=== PATIENT | female | born 1965 | race Caucasian/White ===

== ENCOUNTER → 2022-10-25 17:04 | Outpatient (BNVA) | payer MEDICAID, SELFPAY | PROVIDERS: Visit Provider Emergency Medicine | DX: M54.50 Low back pain, unspecified (principal); M25.552 Pain in left hip; G89.29 Other chronic pain | CPT/HCPCS: 72100; 73502 ==

== ENCOUNTER → 2022-11-22 14:27 | Outpatient (BNVA) | payer SELFPAY | PROVIDERS: Referring Provider Emergency Medicine; Visit Provider Student in an Organized Health Care Education/Training Program | DX: M16.12 Unilateral primary osteoarthritis, left hip (principal) | CPT/HCPCS: 73502 ==

== ENCOUNTER 2022-12-06 15:29 | Outpatient (CLI) | payer SELFPAY ==
--- NOTE | 2022-12-06 15:30 | CT_ITS ---
WS: [id number] CT LEFT HIP, [facility] PROT[facility]. HISTORY: Preop. Technique: All CT scans at [facility] use at least one of these dose optimization techniques: automated exposure control; mA and/or kV adjustment per patient size (includes targeted exams where dose is matched to clinical indication); or iterative reconstruction. DLP: 734.35 mGy.cm COMPARISON: LEFT hip radiograph 11/22/2022 Axial imaging through the pelvis including both hips. There is severe bilateral destruction of the hip joints. There is bone upon bone with extensive subch ondral cystic changes in the acetabulum and femoral heads. Sclerotic and cystic changes with loss of the normal contours. Increased soft tissue surrounding the femoral heads and distending the acetabulu m greatest on the LEFT. Normal SI joints. Bilateral knees: Negative. No destructive bone lesions. No significant joint space narrowing. CT/CT hip LT wo con* [id number] IMPRESSION: 1. Severe bilateral osteoarthritic changes at the hip joints, LEFT greater jacqueline n RIGHT. Extensive sclerotic and lytic disease involving the femoral heads and acetabulum with bony distortion. 2. Negative knees.
== END 2022-12-06 15:30 | disposition home or self-care (01) ==
LOC: RAD 15:29
PROVIDERS: PCP Student in an Organized Health Care Education/Training Program; Visit Provider Student in an Organized Health Care Education/Training Program
DX: G89.29 Other chronic pain (principal); M25.552 Pain in left hip; M17.0 Bilateral primary osteoarthritis of knee
CPT/HCPCS: 73700

== ENCOUNTER → 2022-12-12 11:01 | Outpatient (BNVA) | payer SELFPAY | PROVIDERS: PCP Student in an Organized Health Care Education/Training Program; Referring Provider Student in an Organized Health Care Education/Training Program; Visit Provider Clinical Nurse Specialist Adult Health | DX: Z01.818 Encounter for other preprocedural examination (principal); M16.12 Unilateral primary osteoarthritis, left hip | CPT/HCPCS: 80048; 85025 ==

== ENCOUNTER 2023-01-02 10:30 | Observation (INO) | payer SELFPAY ==
[2022-12-27 09:28] VITALS: BMI 21.1
--- NOTE | 2022-12-27 09:59 | ANES.PREANE2 ---
Pre-Anesthetic Assessment Height/Weight: Height 1.63 m Weight 55.792 kg Operation Date: 01/02/23 07:00 Proposed Procedures p Stew Robot Total Left Hip Arthroplasty:16222,M16.12(Left) - Frederic Momin DO Familial anesthetic complications: none Social No alcohol and No tobacco former smoker Exam alert, oriented x 3, clear to auscultation bilaterally and regular rate & rhythm Airway Mallampati: Class III Dentition: full Anesthetic Plan ASA status: 3 Anesthesia: Regional (specify below) Risk of > 500 ml blood loss (7ml/kg in children): Yes, adequate IV access and fluids planned Medications/Allergies Home Medications Medication Instructions Recorded Confirmed Last Taken Type ibuprofen 600 mg tablet 600 mg PO Q8H PRN pain #60 tabs 10/18/22 12/27/22 Unknown Rx Allergies Allergy/AdvReac Type Severity Reaction Status Date / Time No Known Allergies Allergy Verified 12/27/22 09:27 PFSH Anesthesia Medical History Chronic left hip pain Low back pain Surgical History No history of previous surgery Family History Denies family history of Clotting disorder Anesthesia complication Bleeding disorder Social History Smoking and tobacco status: former smoker Quit status (tobacco): has quit using tobacco Alcohol intake: never Data Anesthesia Cardiac Studies: No Data to Display
[2023-01-02] VITALS (17 sets, daily range): BP systolic 97–162; BP diastolic 62–97; PULSE 58–78; RESP 14–18; TEMP 36.1–36.7; O2SAT 95–100
[2023-01-02] MEDS: lactated ringers 500 ML IV (06:30)
[2023-01-02] MEDS: ketorolac 30 mg/mL INJ IVP (06:47)
--- NOTE | 2023-01-02 06:51 | PC.NURSE ---
Lactated ringers ran as bolus in less than 1 hour, okay per Dr Momin.
--- NOTE | 2023-01-02 06:52 | P.HP_ITS ---
Providers/Chief Complaint Admitting Physician: Frederic Momin DO/orthopedic surgery Primary Care Provider: Formerly Dr. Chairez however patient underwent preoperative clearing process by Cayetano Rausch Chief Complaint: M16.12 History of Present Illness Samantha Bender is a 57 year old female with severe left hip degenerative joint disease and AVN of femoral head. Patient at this point time is significantly sync-pc-xxhn arthritis patient is cleared the preoperative process. At this point time given the severity of her disease and pain she all questions have been answered. shared decision-making would like to proceed with a left total hip arthroplasty. She understands the risk benefits complication alternatives of surgery she is here today for left total hip arthroplasty. Review of Systems General: Reports: 10 or more systems reviewed and unremarkable except in HPI and below Medications/Allergies Home Medications Medication Instructions Recorded Confirmed Last Taken Type ibuprofen 600 mg tablet 600 mg PO Q8H PRN pain #60 tabs 10/18/22 01/02/23 01/01/23 Rx acetaminophen 650 mg 650 mg PO Q8H PRN Pain 01/02/23 01/02/23 12/31/22 History tablet,extended release Allergies Allergy/AdvReac Type Severity Reaction Status Date / Time No Known Allergies Allergy Verified 01/02/23 06:12 PFSH Acute PFSH: Medical History Chronic left hip pain Low back pain Surgical History No history of previous surgery Family History Denies family history of Clotting disorder Anesthesia complication Bleeding disorder Social History Smoking and tobacco status: former smoker Quit status (tobacco): has quit using tobacco Alcohol intake: never Vitals/I&O/Wt Last Vital Signs Temp 97.6 F 01/02/23 06:15 Pulse 78 01/02/23 06:15 Resp 18 01/02/23 06:15 BP 162/97 01/02/23 06:15 Pulse Ox 97 01/02/23 06:15 O2 Del Method Room Air 01/02/23 06:30 Physical Exam Narrative: Left hip examination ? She has significant groin pain tenderness to palpation that goes from anterior to posterior on range of motion.? She has severe pain with hip flexion and internal rotation with markedly decreased range of motion.? She has minimal lumbar tenderness to palpation and no SI joint tenderness to palpation.? Mild lateral trochanteric bursa tenderness to palpation, she is able to plantarflex and dorsiflex ankle.? Gross sensation intact light touch distally.? She is able to perform straight leg raise without pain or discomfort in the lumbar spine. Const: COMMON NORMALS: no acute distress, average body habitus and patient oriented x3 Resp: COMMON NORMALS: normal respiratory effort and No retractions Cardio: COMMON NORMALS: Peripheral pulses 2+ throughout A&P Assessment and plan (1) Arthritis of left hip: Plan Clear the preoperative process. At this point in time she is ready to proceed with a left total hip arthroplasty she has had a CT scan plan will be for a left total hip arthroplasty Stew robotic assisted. Preoperative plan reviewed. Patient understands the ins and outs of the procedure as well as the postoperative recovery process. She understands risk benefits complication alternatives of surgery and elects to proceed with surgical intervention all questions answered Attestations Medical Necessity Statement*: Postoperative care left total hip arthroplasty Coding Level of Care Code Acute Code for [facility] Fwd Diagnoses Arthritis of left hip M16.12 Time Spent (min) 20
[2023-01-02] MEDS: sodium chloride 0.9% 1,000 ML 30 ML IV (07:00)
[2023-01-02] MEDS: acetaminophen 1,000 MG/100 ML PIGGYBACK 400 MG IV ×3 (07:00→22:31)
[2023-01-02 07:11] LABS: Add Urine Microscopic? NO; Charge for UA Resulting for Rev
[2023-01-02 07:17] LABS: Bilirubin Urine Neg (Negative); Blood Urine Neg (Negative); Glucose Urine UA Norm (Normal); Ketones Urine Negative (Negative); Leukocyte Esterase Urine Negative (Negative); Nitrate Urine Negative (Negative); Protein Urine Neg (Negative); Urine Appearance Clear (CLEAR); Urine Color Yellow (Yellow); Urobilinogen Urine Norm (Negative); pH Urine 5 (5-7)
[2023-01-02] MEDS: ceFAZolin 2,000 MG in sodium chloride 0.9% (plus) 50 ML 100 MG IV ×3 (07:23→22:55)
[2023-01-02] MEDS: tranexamic acid 1,000 mg/10mL SDV 1000 MG IV (08:03)
[2023-01-02] MEDS: lidocaine-epi 2% 20 mL INJ INJECTION (08:32)
[2023-01-02] MEDS: vancomycin 1,000 MG SDV 1000 MG XX (08:32)
--- NOTE | 2023-01-02 08:48 | SUR.OPER ---
0865 Family was notified of surgery starting and status of patient.
--- NOTE | 2023-01-02 09:23 | P.ANESUD_ITS ---
Pre-Anesthetic Update Pre-Anesthetic Assessment: Date of Surgery/Procedure: 01/02/23 Preop Luz Elena gnosis: Left hip degenerative joint disease Proposed Procedure: Operation Date: 01/02/23 07:00 Proposed Procedures p Stew Robot Total Left Hip Arthroplasty:78704,M16.12(Left) - Frederic Momin, DO Any changes to Pre-Anesthetic Assessment?: No Last Intake: Intake Last Liquid Date 01/01/23 Last Liquid Time 21:00 Last Solid Date 01/01/23 Last Solid Time 20:00 Labs Last 48hrs: Urine 01/02/23 Range/Units 07:05 Urine Color Yellow (Yellow) Urine Appearance Clear (CLEAR) Urine pH 5 (5-7) Ur Specific Gravit y 1.030 (1.005-1.030) Urine Protein Neg (Negative) Urine Glucose (UA) Norm (Normal) Urine Ketones Negative (Negative) Urine Nitrate Negative (Negative) Urine Bilirubin Neg (Negative) Ur Leukocyte Rachele ase Negative (Negative) Blood Bank 01/02/23 06:30 Blood Type O Positive Rho(D) Type Positive Antibody Screen Negative Vitals: Temperature 97.6 F 01/02/23 06:15 Temperature Source Temporal Artery S can 01/02/23 06:15 Pulse Rate 78 01/02/23 06:15 Respiratory Rate 18 01/02/23 06:15 Blood Pressure 162/97 01/02/23 06:15 Blood Pressure Estela n 118 01/02/23 06:15 Pulse Oximetry 97 01/02/23 06:15 Oxygen Delivery Me thod Room Air 01/02/23 06:30 Exam: Pre-Anes Outpt Exam: alert, oriented x 3, clear to auscultation bilaterally and regular rate & rhythm Cardiac Studies: No Data to Display
--- NOTE | 2023-01-02 09:26 | SUR.OPER ---
Family Notified Of Patient's Status Via Phone.
--- NOTE | 2023-01-02 10:39 | XR_ITS ---
WS: [id number] XR hip LT 1V wo/w pel [id number] REASON FOR EXAM: LEFT TOTAL HIP ARTHROPLASTY, ARMANDO ROBOTIC ASSISTED FINDINGS: Total left hip arthroplasty. Components of the prosthesis are intact and in proper position and alignment. No bone abnormality. XR/XR hip LT 1V wo/w pel [id number] IMPRESSION: Total right hip arthroplasty without abnormality.
--- NOTE | 2023-01-02 10:57 | XR_ITS ---
WS: [id number] XR hip LT 2-3V wo/w pel* [id number] REASON FOR EXAM: post op EB left FINDINGS: Total left hip arthroplasty. The components of the prosthesis are intact and in proper position and alignment. No focal bone abnormality. XR/XR hip LT 2-3V wo/w pel* [id number] IMPRESSION: Total left hip arthroplasty without abnormality.
--- NOTE | 2023-01-02 10:59 | PM.OP2 ---
Brief Operative Note Date of procedure: 01/02/23 Pre-op diagnosis: Left hip degenerative joint disease AVN femoral head Post-op diagnosis: same Procedure Done: Left total hip arthroplasty?Stew robotic assisted (anterior approach) Surgeon: Frederic Momin Estimated blood loss (mL): 350 Complications: None Post-op Plan: Patient taken to PACU in stable condition recovering well. Patient will be admitted to the floor postoperatively. Internal medicine on board for medical management and assistance. Patient will receive appropriate discharge instructions pain medication DVT prophylaxis postoperatively. We will start DVT prophylaxis tomorrow with aspirin 325 twice daily. Will receive postoperative pain medication DVT prophylaxis TXA as well as pain control while on the floor. PT/OT. Anterior hip precautions. Weightbearing as tolerated to left lower extremity. Condition: stable Disposition: floor Coding Level of Care Code Acute Code for [facility]
--- NOTE | 2023-01-02 11:00 | PM.PACU ---
PACU note Narrative: Patient taken to PACU in stable condition recovering well. Dressings are clean dry and intact the left hip. Spinal anesthesia is wearing off she is able to wiggle her toes plantarflex and dorsiflex ankle patient's sensation is recovering unable to have full sensory examination secondary to spinal anesthesia. Distal pulses are palpable toes warm well perfused brisk capillary refill less than 2 seconds. Compartments soft and compressible. Exam: awake Disposition: admitted
--- NOTE | 2023-01-02 11:00 | PM.OP ---
Operative Report Date of procedure: January 02, 2023 Pre-op diagnosis: Preop Diagnosis Left hip degenerative joint disease Procedure: Postop diagnosis: Same Procedure done: Left total hip arthroplasty?Stew robotic assisted?anterior approach Implants: Deo Trident acetabular shell size 50 mm [place] acetabular screw 25 mm [place] acetabular screw 25 mm Accolade II 127 degree size 5? femur stem Trident 0 degree polyethylene 36 degree inner diameter 36 mm femoral head ceramic +2.5 mm Surgeon: Frederic Momin DO Anesthesia: Other (Spinal) Estimated blood loss: 350 mL IV fluids: 1100 mL Complications: None Findings: See operative report narrative Condition: stable Disposition: floor Brief History: Patient is a 57-year-old female presented to my outpatient office setting findings consistent with qyby-ng-tinq arthritis advanced degenerative joint disease of the left hip and findings consistent with AVN/flattening of the femoral head. Patient is in severe pain. We talked about treatment options as far as nonoperative and operative intervention.? At this point time patient is acca-xh-vkwa arthritis we did offer a corticosteroid injection at this point time given jilc-we-wzuq articulation pt would like to avoid placing a corticosteroid injection at this point time would like a permanent fix.? Patient has severely diminished range of motion and utilizing cane for walking. We talked about treatment options at this point time patient understands the risk benefits complication alternatives surgical nonsurgical treatment options.? Patient understands risk of surgery and agrees to proceed.? Patient is underwent a preoperative evaluation with our anesthesia department. Pt cleared for surical intervention. Pt understood and was agreeable to proceed with a left total hip arthroplasty consent was reviewed and signed with patient.?? All questions answered.? Patient will be admitted postoperatively. Procedure: Patient was seen evaluated in the preoperative holding area.? Consent was reviewed and signed with patient.? Correct operative extremity was then marked. ? All questions were answered at this time.? Once cleared by anesthesia used to brought back to the operative suite he then underwent anesthesia per the anesthesia department of a spinal anesthetic. The patient was administered tranexamic acid and preop antibiotics, and placed in the supine position. All bony prominences were properly padded, securely fixed to the table, and administered??anesthetic. The patient was subsequently transferred from the hospital bed to the [place] table. Bilateral lower extremities were placed in the traction boots. The pelvis was well approximated against the perineal post.? Final timeout performed.? Patient received appropriate preoperative antibiotics. Both hips were then prepped and draped in a normal orthopedic fashion.? Started with a small incision 2 fingerbreadths above the ASIS on the right iliac wing to place? pelvic arrays.? Small incision was made directly down to bone.? 3 pelvic pins were placed with excellent fixation.? The robotic array was secured to the nonoperative iliac wing using sterile technique. The extremity was then definitively draped in standard, sterile fashion.? The array was found to be visible by the robot. ?A standard? anterior supine approach was performed to the?operative hip joint. The skin was incised down to the tensor fascia erica muscle and fascia. Fascia was split longitudinally in line with its fibers. The tensor fascia erica muscle was retracted laterally. The appropriate retractors were placed superiorly. Lateral circumflex vessels were identified and appropriately ligated. The hip capsule was then identified.? Appropriate retractors were placed superiorly and inferiorly along the capsule directly onto bone.? That was split longitudinally up to the acetabular rim in line with the femoral neck. The femoral capsule was found to be significantly hypertrophic, thickened, and significantly fibrotic. The capsule was then elevated both superiorly and inferiorly down to the lesser trochanter as well as up towards the greater trochanter.? Tag stitches were applied with 0 Vicryl into the capsule.? Femoral check point was?then inserted and confirmed on the lateral trochanter proximal femur.? .? A distal marker?was placed into the distal femur for measurement of leg lengths.? Preoperative leg lengths were registered and confirmed at this point. Next the appropriate-sized neck cut was then performed after being measured with robotic assistance. Femoral head was removed atraumatically this was found to have significant degenerative changes and deformity with significant osteophyte formation.? Femoral head was found to be flattening with, eburnated bone, large CAM lesion and pronouced inferior medial osteophytes. Acetabulum was also inspected and was found to have peripheral osteophytes as well as no evidence of cartilage consistent with irrq-cj-dwju arthritis.? Appropriate retractors were then placed in the anterior and posterior wall.? The remaining labrum was then excised from the periphery of the acetabular rim. Pulvinar was excised.? At this point registration for the Stew was performed on the acetabular side and confirmed. Once confirmed, any osteophytes able to be were removed. We planned 40 degrees of lateral opening and 20 degrees of anteversion. At this point, we reamed and medialized to the inner wall of the acetabulum with a size?50?reamer for line to line fit.?The acetabulum was found to have good bleeding bone throughout.?? Reamer removed excellent bleeding bone circumferentially with sufficient anterior and posterior wall. ?The definitive acetabular cup 50 mm was inserted and impacted under?Stew guidance with the appropriate amount of anteversion and lateral opening. It was then secured with 2x 6.5 mm cancellous screws in appropriate safe zone position.? I subsquently drilled measured and place appropriate length acetabular screws which measured 25 mm and 25 mm.? These had excellent fixation final x-rays were taken of the acetabular work and showed a seated and well fixed acetabular cup with appropriate position acetabular screws.? ?Next a 36-mm X3 neutral liner was impacted into the?acetabular shell and secured. Hip was then irrigated with copious amounts of irrigation. At this point, the remaining femoral releases were then performed allowing the adequate mobilization of the?left?femur.? Traction was confirmed to being off to the left lower extremity and the femur was then externally rotated, extended, and adducted giving adequate exposure of the proximal femur in the surgical wound. Box cut was then used to enter the intramedullary canal of the?femur. Canal finder was placed down the canal of the?operative femur. Appropriate-sized broaches from a size 0 up to a size 5 were impacted down the operative femoral canal with the appropriate amount of anteversion.? A?+2.5 mm neck was found to be most appropriate for a soft tissue tensioning offset and the leg lengths that was confirmed with Stew as well as fluoroscopic imaging. ?Stability was then assessed and excellent stability with patient external rotation of greater than 90 degrees and traction with no evidence of hip instability.? Appropriate tension noted of the soft tissues. At this point, the hip was relocated.?Stew guidance was again used to confirm appropriate leg lengths. Operative hip was then re-dislocated using a bone hook. All trials were then removed from the?operative femur. Adequate exposure was then once again obtained. The trials were removed. The definitive Accolade II stem size 5 was impacted down the?femoral canal with the appropriate amount of anteversion. The appropriate sized head 36 mm ceramic +2.5 mm was impacted onto the trunnion, and the?operative?hip was then relocated with traction and internal rotation. Final measurements were obtained on Stew confirming leg lengths and offset.? Once again hip stability was assessed and found to have excellent stability and appropriate soft tissue tensioning.? Hip was irrigated with copious amounts of irrigation.? Vancomycin powder was placed within the wound bed for added infection prophylaxis.? The superior and inferior leaflets of the capsule were then closed with Ethibond suture.? Vicryl tag stitches were removed.? The superficial layer of the tensor fascia erica fascia was closed using 0 stratafix suture in a running fashion.? Subcutaneous tissues were closed with running 3-0 Stratafix, skin was closed with 4-0 monocryl.?Surgical Prineo glue and steri strips were?applied and covered with a optsite dressing to the operative side.?The incision on the non-operative side for the robotic array was irrigated and closed with layered fashion of 0 Vicryl, 2-0 Vicryl and running Monocryl suture and surgical glue and covered with silverlon. ?The patient was subsequently awoken per Anesthesia and transferred to PACU in satisfactory condition. ?Leg lengths and rotational profile were found to be appropriate. ? DISPOSITION: The patient will be admitted to the hospital for initiation of DVT prophylaxis, physical therapy, pain control. The patient is to weight bear as tolerated. Anterior hip precautions, postoperative antibiotics,?postoperative TXA and aspirin?for DVT prophylaxis.? Patient will receive appropriate discharge instructions as well as pain medication postoperatively and will follow up in my office in 2 weeks.? Patient with work with PT/OT.? Internal medicine will be consulted for medical management.
--- NOTE | 2023-01-02 11:42 | PM.CONSULT ---
Providers/Reason For Consult Consulting Physician/Specialty*: Postoperative management Reason for Consult*: Hospitalist postoperative managed Attending Physician: Frederic Momin DO History of Present Illness History of Present Illness Samantha Bender is a 57 year old female Status post left total hip arthroplasty, estimated blood loss 350 mL, hospital service requested to manage postop. Does not use oxygen, does not use any inhalers, she does not carry an official diagnosis of COPD. Postoperatively patient doing well pain well managed with current opioids Hemodynamically stable, family is at the bedside Afebrile Review of Systems Const: Denies: fever(s) Eyes: Denies: change in vision ENMT: Denies: throat pain Card: Denies: chest pain Resp: Denies: dyspnea GI: Denies: abdominal pain : Denies: flank pain Musc: Denies: neck pain Skin/Breast: Denies: rash Neuro: Denies: headache(s) Psych: Denies: anxiety Medications/Allergies Home Medications Medication Instructions Recorded Confirmed Last Taken Type ibuprofen 600 mg tablet 600 mg PO Q8H PRN pain #60 tabs 10/18/22 01/02/23 01/01/23 Rx acetaminophen 650 mg 650 mg PO Q8H PRN Pain 01/02/23 01/02/23 12/31/22 History tablet,extended release oxycodone-acetaminophen 5 mg-325 1 tab PO Q6H PRN pain 7 days #28 01/02/23 Unknown Rx mg tablet (Percocet) tabs Allergies Allergy/AdvReac Type Severity Reaction Status Date / Time No Known Allergies Allergy Verified 01/02/23 06:12 Current Medications Generic Name Dose Route Start Last Admin Trade Name Freq PRN Reason Stop Dose Admin Sodium Chloride 1,000 mls @ 30 mls/hr 01/02/23 06:00 01/02/23 09:53 Sodium Chloride 0.9% IV 01/03/23 05:59 Infused .Q24H CAITLYN Infusion PFSH Acute PFSH: Medical History Chronic left hip pain Low back pain Surgical History No history of previous surgery Family History Denies family history of Clotting disorder Anesthesia complication Bleeding disorder Social History Smoking and tobacco status: former smoker Quit status (tobacco): has quit using tobacco Alcohol intake: never Vitals/I&O/Wt Last Vital Signs Temp 98.0 F 01/02/23 11:29 Pulse 62 01/02/23 11:29 Resp 16 01/02/23 11:29 BP 127/80 01/02/23 11:29 Pulse Ox 98 01/02/23 11:29 O2 Del Method Room Air 01/02/23 11:29 O2 Flow Rate 6 01/02/23 11:09 01/01/23 01/02/23 01/02/23 22:59 06:59 14:59 Intake Total 1800 / 1800 Output Total 850 / 850 Balance 950 / 950 Physical Exam Narrative: Awake and alert GCS [address] S1, S2 Nonfocal neuro exam Currently on room air Hemodynamically stable Abdomen soft Urinary Catheter Management: Douglas: Cath Placed During This Visit: yes Urinary Catheter Date of Insertion: 01/02/23 Urinary Catheter Time of Insertion: 07:55 Data 01/03/23 08:58 01/03/23 04:13 A&P Assessment and plan (1) Degenerative arthritis of hip: Qualifiers: Osteoarthritis type: primary Laterality: left Qualified Code(s): M16.12 - Unilateral primary osteoarthritis, left hip (2) Arthritis of left hip: (3) S/P total left hip arthroplasty: Plan Postoperative left hip arthroplasty Postop day 0 No postoperative complication Plan to discharge her tomorrow Patient doing well with PT Douglas catheter will be removed before discharge Patient does not use any inhalers or oxygen at home Full code DVT prophylaxis aspirin Consult Attestations Medical Necessity Statement: As per the orthopedic team Diagnoses Degenerative arthritis of hip M16.12 Osteoarthritis type: primary Laterality: left Arthritis of left hip M16.12 S/P total left hip arthroplasty Z96.642
[2023-01-02] MEDS: lactated ringers 1,000 ML 100 ML IV ×2 (12:09→22:55)
[2023-01-02] MEDS: chlorhexidine gluconate 0.12% UDC 15 mL 30 ML MUCOUS MEM ×3 (12:10→21:22)
--- NOTE | 2023-01-02 14:59 | ANE.PACU2 ---
Inpatient post-anesthesia follow up: Airway intact: Yes Vital signs: Temperature 97.5 F Pulse Rate 60 Respiratory Rate 18 Blood Pressure 115/76 Pulse Oximetry 96 Oxygen Delivery Me thod Room Air Oxygen Flow Rate 6 Fraction of Inspir ed Oxygen Hydration adequate: Yes Nausea and vomiting: No Pain level: 3 Mental status: Baseline
[2023-01-02] MEDS: TRAMadol 50 mg Tablet PO ×2 (16:28→21:22)
[2023-01-02] MEDS: calcium carb-vit d 600mg/400unit 1 Tablet 1 EACH PO (17:20)
[2023-01-02] MEDS: sennosides-docusate Tablet 2 TAB PO (17:20)
[2023-01-02] MEDS: iron polysaccharide complex 150 mg Capsule PO (17:20)
--- NOTE | 2023-01-02 18:58 | PC.NURSE ---
SHIFT SUMMARY PATIENT HAS DONE VERY WELL TODAY. PAIN CONTROLLED WITH ORAL PAIN MEDICATION. WALKED STAIRS WITH PHYSICAL THERAPY. GOOD PO INTAKE AND OUTPUT. CURRENTLY RESTING IN BED WITH VISITORS AT BEDSIDE.
[2023-01-02] MEDS: ketorolac 30 mg/mL INJ 15 MG IVP (19:31)
[2023-01-03] VITALS (7 sets, daily range): BP systolic 88–114; BP diastolic 55–70; PULSE 67–80; RESP 16–18; TEMP 37–37.4; O2SAT 93–98
[2023-01-03 04:56] LABS: Basophils % 0.2 %; Eosinophils # 0.1 10^3/uL (0.0-0.8); Eosinophils % 0.9 %; Hematocrit 26.4 % (37.0-47.0); Hemoglobin 8.3 g/dL (11.5-15.3); Lymphocytes # 2.3 10^3/uL (0.8-4.8); Lymphocytes % 21.3 %; Mean Corpuscular HGB Conc 31.4 g/dL (30.0-36.0); Mean Corpuscular Hemoglobin 31.6 pg (28.0-34.0); Mean Corpuscular Volume 100.4 fl (81-99); Mean Platelet Volume 10.1 fL (7.4-10.4); Monocytes # 1.2 10^3/uL (0.2-0.9); Neutrophils # 7.21 10^3/uL (1.8-7.7); Neutrophils % 66.2 %; Nucleated Red Blood Cells % 0 %; Platelet Count 250 10^3/cmm (130-400); Red Blood Count 2.63 10^6/uL (4.1-5.3); Red Cell Distribution Width 13.5 % (12.1-15.1); White Blood Count 10.9 10^3/uL (4.0-10.0)
[2023-01-03 05:19] LABS: Blood Urea Nitrogen 24 mg/dL (6-20); Calcium 8.6 mg/dL (8.5-10.5); Carbon Dioxide 24 mmol/L (22-29); Chloride 111 mmol/L (98-107); Creatinine Clr Calc Pharmacy 105.4491; Glomerular Filtration Rate 126.3 mL/min (90-130); Glucose 88 mg/dL (65-115); Osmolality Calculated 293 mOsm/kg (285-295); Sodium 140 mmol/L (136-145)
[2023-01-03] MEDS: acetaminophen 1,000 MG/100 ML PIGGYBACK 400 MG IV (06:11)
[2023-01-03] MEDS: oxyCODONE 5 mg IR Tab/Cap PO (06:11)
[2023-01-03] MEDS: ceFAZolin 2,000 MG in sodium chloride 0.9% (plus) 50 ML 100 MG IV (06:33)
[2023-01-03] MEDS: sennosides-docusate Tablet 2 TAB PO (08:42)
[2023-01-03] MEDS: iron polysaccharide complex 150 mg Capsule PO (08:42)
[2023-01-03] MEDS: multivitamin therapeutic Tablet 1 TAB PO (08:42)
[2023-01-03] MEDS: aspirin 325 mg EC Tablet PO (08:42)
[2023-01-03] MEDS: chlorhexidine gluconate 0.12% UDC 15 mL 30 ML MUCOUS MEM (08:42)
[2023-01-03] MEDS: calcium carb-vit d 600mg/400unit 1 Tablet 1 EACH PO (08:42)
[2023-01-03 09:10] LABS: Hemoglobin 8.8 g/dL (11.5-15.3)
--- NOTE | 2023-01-03 10:18 | PC.CHAP ---
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 visit [] Patient/Family/Request visit [] Outpatient visit [] Follow-up visit [] Physician referral [] Code/Alert [x] Routine visit [] Staff referral [] Actively dying [] Patient sleeping [] Family support [] [] Out of room [] Palliative care [] [x] Receiving care in room [] Pre-surgical visit [] Trauma [] Long length of stay [] ICU visit [] Other: Relational/Emotional Strength [x] Patient feels connected with others/family/visitors/staff [] Distress [] Loneliness/isolation [] Abandonment Spirituality of Patient [x] Person of Rosita [] Attends Yazidism of their Rosita [x] Believes in Prayer [] Reads Bible or Nondenominational materials [] There are Spiritual issues to be addressed 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 [x] Prayer [x] Active listening [x] Non-anxious presence [x] Spiritual/emotional support [] Crisis/trauma care [x] Spiritual counseling [] Bereavement support [] Provided bereavement packet [] Provided Bible/devotional materials [] Provided toy/stuffed animal, coloring book to patient or family member [] Provided Communion [] Anointing/[place] [] Salvation [x] Completed spiritual assessment [] Other: Impact on Illness or Injury [] Angry [] Fearful [] Anxious [] Often cries [] Exhaustion [] Unable to work [] Unable to attend jain [] Unable to walk/stand [] Unable to read [] Unable to drive [] Unable to eat/drink [] Unable to sleep [] Unable to be with family [] Patient intubated [] Other: Summary hip replacement well need some rehab has a good attitude +1 well go home Time spent with patient 10 mins
--- NOTE | 2023-01-03 12:19 | PM.PN ---
Subjective Subjective: Patient seen and evaluated this morning she is doing well postoperatively she is already worked with therapy and ready for discharge home. No issues overnight. Pain controlled with medications. Spinal anesthesia has worn off completely and able to perform straight leg raise Vitals/I&O/Wt Last Vital Signs Temp 99.3 F 01/03/23 07:54 Pulse 78 01/03/23 08:00 Resp 18 01/03/23 08:00 BP 88/55 01/03/23 07:54 Pulse Ox 98 01/03/23 08:00 O2 Del Method Room Air 01/03/23 08:00 O2 Flow Rate 6 01/02/23 11:09 01/02/23 01/03/23 01/03/23 22:59 06:59 14:59 Intake Total 1420 / 3460 150 / 3610 290 / 290 Output Total 500 / 1350 225 / 1575 Balance 920 / 2110 -75 / 2034 290 / 290 Physical Exam Narrative: Dressings to the left hip as well as to the right iliac wing are clean dry and intact normal postoperative swelling and ecchymosis noted. Compartments are soft compressible. Able to perform straight leg raise the left lower extremity. Able to wiggle toes plantarflex and dorsiflex ankle sensations intact light touch distally. Distal pulses are palpable toes warm well perfused. Urinary Catheter Management: Douglas: Cath Placed During This Visit: yes, but has since been removed by the nurse Reason for Continuing Indwelling Catheter: Perioperative Use in Selected Surgeries Urinary Catheter Date of Insertion: 01/02/23 Urinary Catheter Time of Insertion: 07:55 Date Urinary Catheter Removed: 01/03/23 Time Urinary Catheter Discontinued: 06:39 Data 01/03/23 08:58 01/03/23 04:13 Xray Ortho: My impression: Postoperative PACU x-rays demonstrate stable left total hip arthroplasty placement with stable fixation no periprosthetic fracture or dislocation noted. A&P Assessment and plan (1) S/P total left hip arthroplasty: Plan Complete postoperative antibiotics Weightbearing as tolerated left lower extremity Pain control DVT prophylaxis Resume regular diet Internal medicine on board for medical management PT/OT Plan for discharge home today Patient follow-up in the orthopedic office in 2 weeks Appropriate discharge instructions as well as pain medication and DVT prophylaxis in patient discharge Attestations Medical Necessity Statement*: Postop left total hip arthroplasty care Coding Level of Care Code Acute Code for Chg Fwd Diagnoses S/P total left hip arthroplasty Z96.642 Time Spent (min) 20
--- NOTE | 2023-01-03 12:21 | P.DS_ITS ---
Discharge Providers Date of Admission: 01/02/23 10:30 Date of Discharge: January 03, 2023 Attending Provider at Admission: Frederic Momin DO Attending Provider at Discharge: Frederic Momin DO Consults: Internal medicine?hospitalist for medical management Diagnoses at Discharge Discharge Diagnosis (1) Degenerative arthritis of hip: Status: Inactive Qualifiers: Laterality: left Osteoarthritis type: primary Qualified Code(s): M16.12 - Unilateral primary osteoarthritis, left hip (2) Arthritis of left hip: Status: Inactive (3) S/P total left hip arthroplasty: Status: Inactive Reason for Visit Reason for Visit: M16.12 Brief History: Postoperative care left total hip arthroplasty Hospital Course Hospital Course Patient was brought to the hospital through the preoperative holding area with plan for left total hip arthroplasty for 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 Once cleared by anesthesia for surgery subsequently was taken back to the operative suite he underwent spinal anesthesia and then underwent left total hip arthroplasty without any complications.? Patient was then subsequently taken back to PACU in stable condition recovering well.? Once recovered he was then subsequently admitted to the floor postoperatively.? Internal medicine was consulted for medical management assistance.? Patient weightbearing as tolerated to the left lower extremity anterior hip precautions.? PT/OT.? Pain control.? DVT prophylaxis.? Postoperative antibiotics and TXA.? This dressing was change as needed. Internal medicine was on board and appreciate their medical management and assistance.Pt was determined on postoperative day 1 the patient was stable for discharge from orthopedic as well as internal medicine standpoint.? Will receive appropriate pain medication as well as DVT prophylaxis postoperatively.? Appropriate discharge instructions as well.? Patient was then discharged in stable condition.? pt will follow-up with Dr. Momin in the office in 2 weeks.? Patient understands and agrees with current plan.? All questions answered.? Understands there is any issues or concerns and contact the office. Physical Exam Narrative: Dressings to the left hip as well as to the right iliac wing are clean dry and intact normal postoperative swelling and ecchymosis noted. Compartments are soft compressible. Able to perform straight leg raise the left lower extremity. Able to wiggle toes plantarflex and dorsiflex ankle sensations intact light touch distally. Distal pulses are palpable toes warm well perfused. Urinary Catheter Management: Douglas: Cath Placed During This Visit: yes, but has since been removed by the nurse Reason for Continuing Indwelling Catheter: Perioperative Use in Selected Surgeries Urinary Catheter Date of Insertion: 01/02/23 Urinary Catheter Time of Insertion: 07:55 Date Urinary Catheter Removed: 01/03/23 Time Urinary Catheter Discontinued: 06:39 Discharge Data Studies Completed and Pending Completed Studies During Hospitalization Category Date Time Status XR hip LT 2-3V wo/w pel* [id number] Routine Exams 01/02/23 10:39 Completed XR hip LT 2-3V wo/w pel* [id number] Routine Exams 01/02/23 10:57 Completed Pending at discharge Category Date Time Status Basic Metabolic Panel AM LABS Lab 01/04/23 04:00 Ordered Basic Metabolic Panel AM LABS Lab 01/05/23 04:00 Ordered Complete Blood Count w/Auto AM LABS Lab 01/04/23 04:00 Ordered Complete Blood Count w/Auto AM LABS Lab 01/05/23 04:00 Ordered Radiology Impressions Hip X-Ray 01/02/23 10:39 IMPRESSION: Total right hip arthroplasty without abnormality. Hip/Pelvis X-Ray 01/02/23 10:57 IMPRESSION: Total left hip arthroplasty without abnormality. Laboratory Results WBC 10.9 10^3/uL (4.0-10.0) H 01/03/23 04:13 RBC 2.63 10^6/uL (4.1-5.3) L 01/03/23 04:13 Hgb 8.8 g/dL (11.5-15.3) L 01/03/23 08:58 Hct 28.0 % (37.0-47.0) L 01/03/23 08:58 MCV 100.4 fl (81-99) H 01/03/23 04:13 MCH 31.6 pg (28.0-34.0) 01/03/23 04:13 MCHC 31.4 g/dL (30.0-36.0) 01/03/23 04:13 RDW 13.5 % (12.1-15.1) 01/03/23 04:13 Plt Count 250 10^3/cmm (130-400) 01/03/23 04:13 MPV 10.1 fL (7.4-10.4) 01/03/23 04:13 Neut % (Auto) 66.2 % 01/03/23 04:13 Lymph % (Auto) 21.3 % 01/03/23 04:13 [place] % (Auto) 11.0 % 01/03/23 04:13 Eos % (Auto) 0.9 % 01/03/23 04:13 Baso % (Auto) 0.2 % 01/03/23 04:13 Neut # (Auto) 7.21 10^3/uL (1.8-7.7) 01/03/23 04:13 Lymph # (Auto) 2.3 10^3/uL (0.8-4.8) 01/03/23 04:13 [place] # (Auto) 1.2 10^3/uL (0.2-0.9) H 01/03/23 04:13 Eos # (Auto) 0.1 10^3/uL (0.0-0.8) 01/03/23 04:13 Baso # (Auto) 0.0 10^3/uL (0.0-0.1) 01/03/23 04:13 Nucleated RBC % (auto) 0 % 01/03/23 04:13 Nucleated RBCs # 0.0 /100WBC 01/03/23 04:13 Sodium 140 mmol/L (136-145) 01/03/23 04:13 Potassium 4.0 mmol/L (3.5-5.1) 01/03/23 04:13 Chloride 111 mmol/L (98-107) H 01/03/23 04:13 Carbon Dioxide 24 mmol/L (22-29) 01/03/23 04:13 Anion Gap 9.0 (5-19) 01/03/23 04:13 BUN 24 mg/dL (6-20) H 01/03/23 04:13 Creatinine 0.5 mg/dL (0.5-0.9) 01/03/23 04:13 GFR Calculation 126.3 mL/min (90-130) 01/03/23 04:13 Glucose 88 mg/dL (65-115) 01/03/23 04:13 Calculated Osmolality 293 mOsm/kg (285-295) 01/03/23 04:13 Calcium 8.6 mg/dL (8.5-10.5) 01/03/23 04:13 Urine Color Yellow (Yellow) 01/02/23 07:05 Urine Appearance Clear (CLEAR) 01/02/23 07:05 Urine pH 5 (5-7) 01/02/23 07:05 Ur Specific [place] 1.030 (1.005-1.030) 01/02/23 07:05 Urine Protein Neg (Negative) 01/02/23 07:05 Urine Glucose (UA) Norm (Normal) 01/02/23 07:05 Urine Ketones Negative (Negative) 01/02/23 07:05 Urine Blood Neg (Negative) 01/02/23 07:05 Urine Nitrate Negative (Negative) 01/02/23 07:05 Urine Bilirubin Neg (Negative) 01/02/23 07:05 Urine Urobilinogen Norm mg/dL (Negative) 01/02/23 07:05 Ur Leukocyte Esterase Negative (Negative) 01/02/23 07:05 Blood Type O Positive 01/02/23 06:30 Rho(D) Type Positive 01/02/23 06:30 Antibody Screen Negative 01/02/23 06:30 Procedures Performed Left total hip arthroplasty Vitals Last Vital Signs Temp 99.3 F 01/03/23 07:54 Pulse 78 01/03/23 08:00 Resp 18 01/03/23 08:00 BP 88/55 01/03/23 07:54 Pulse Ox 98 01/03/23 08:00 O2 Del Method Room Air 01/03/23 08:00 O2 Flow Rate 6 01/02/23 11:09 Discharge Plan Discharge Patient Disposition: Home Condition: Stable Prescriptions: New aspirin 325 mg tablet 325 mg PO BID 35 Days Qty: 70 0RF Percocet 5-325 mg tablet 1 tab PO Q6H PRN (Reason: pain) 7 Days Qty: 28 0RF ondansetron 4 mg tablet,disintegrating 4 mg PO DAILY 5 Days Qty: 5 0RF calcium carbonate-vitamin D3 600 mg-10 mcg (400 unit) Tablet 1 ea PO BID 30 Days Qty: 60 0RF Discontinued ibuprofen 600 mg tablet 600 mg PO Q8H PRN (Reason: pain) Qty: 60 0RF acetaminophen [Tylenol Arthritis] 650 mg Tablet Extended Release 650 mg PO Q8H PRN (Reason: Pain) Discharge Orders: Discharge Order (Routine); Ordered 01/03/23 Ordered By: Vitaliy Lemos Referrals: Frederic Momin DO [Physician] - 01/17/23 10:00 am (Please arrive 15 minutes early ) Rocky Hawkins PA [Nurse Practitioner] - (Message sent to clinic.) Discharge Diet: Advance as tolerated Discharge Activity: Increase activity as tolerated, Use walker/crutches as instructed and As per PT/OT instructions Patient Instructions: Oxycodone/Acetaminophen (By mouth) (Percocet, Roxicet), Aspirin (By mouth), Ondansetron (By injection) (Zofran, BD Simplist Ondansetron,..., Calcium/Vitamin D Supplement (By mouth) (Jensen-Citrate, Jensen- Citrate..., Revision Total Joint Arthroplasty (DC) Activity Restrictions/Additional Instructions: Orthopedic discharge instructions: Patient may be weightbearing as tolerated to the operative extremity Keep incisions clean dry and intact May remove [place] bandage dressings after 7 days or may change if becomes over 50% saturated Ice operative site and as needed for pain and swelling Anterior hip precautions Take pain medication as prescribed Take antinausea medication as needed Supplement with Citracal vitamin D for bone health and healing Aspirin 325 twice daily for blood clot prevention postoperatively Follow-up in the orthopedic office in 2 weeks Contact the office for any questions or concerns Discharge Attestations Time Spent in Discharge Care*: greater than 30 min Quality Metrics Clinical Quality Measures [ No reported AMI, CVA or VTE this stay] Coding Level of Care Code Acute Code for Chg Fwd Diagnoses Degenerative arthritis of hip M16.12 Laterality: left Osteoarthritis type: primary Arthritis of left hip M16.12 S/P total left hip arthroplasty Z96.642 Time Spent (min) 30
== END 2023-01-03 13:22 | disposition home or self-care (01) ==
LOC: MEDSURG 10:32
PROVIDERS: Internal Medicine; Admitting Provider Student in an Organized Health Care Education/Training Program; Visit Provider Student in an Organized Health Care Education/Training Program
PROC: 8E0Y0CZ Robotic Assisted Procedure of Lower Extremity, Open Approach (ICD-10-PCS; CPT 27130; principal; 2023-01-02 07:00)
DX: M16.12 Unilateral primary osteoarthritis, left hip (principal); Z87.891 Personal history of nicotine dependence
CPT/HCPCS: 27130; 36415; 51702; 73501; 73502; 76000; 80048; 81003; 85014; 85018; 85025; 86850; 86900; 97110; 97116; 97162; 97165; 97530; C1713; C1776; G0378; J0131; J0690; J1100; J1885; J2250; J2370; J2704; J3010; J3370; J3490; J7030; J7120

== ENCOUNTER → 2023-01-17 10:01 | Outpatient (BNVA) | payer SELFPAY | PROVIDERS: Visit Provider Student in an Organized Health Care Education/Training Program | DX: Z96.642 Presence of left artificial hip joint (principal) | CPT/HCPCS: 73502 ==

== ENCOUNTER → 2023-04-18 10:54 | Outpatient (BNVA) | payer SELFPAY | PROVIDERS: Visit Provider Student in an Organized Health Care Education/Training Program | DX: Z96.642 Presence of left artificial hip joint (principal) | CPT/HCPCS: 73502 ==

== ENCOUNTER → 2024-01-16 13:48 | Outpatient (BNVA) | payer BC, SELFPAY | PROVIDERS: PCP Family Medicine; Visit Provider Physician Assistant | DX: Z96.642 Presence of left artificial hip joint (principal) | CPT/HCPCS: 73502 ==

== ENCOUNTER → 2024-02-11 08:57 | Outpatient (BNVA) | payer BC, SELFPAY | PROVIDERS: PCP Family Medicine; Visit Provider Student in an Organized Health Care Education/Training Program | DX: M16.11 Unilateral primary osteoarthritis, right hip (principal); M24.151 Other articular cartilage disorders, right hip; R93.7 Abnormal findings on diagnostic imaging of other parts of musculoskeletal system | CPT/HCPCS: 73502 ==

== ENCOUNTER → 2024-02-28 07:37 | Outpatient (BNVA) | payer BC, SELFPAY | PROVIDERS: PCP Family Medicine; Visit Provider Student in an Organized Health Care Education/Training Program | DX: M16.11 Unilateral primary osteoarthritis, right hip (principal) | CPT/HCPCS: 77002 ==

== ENCOUNTER → 2024-07-10 07:45 | Outpatient (BNVA) | payer BC, SELFPAY | PROVIDERS: PCP Family Medicine; Visit Provider Student in an Organized Health Care Education/Training Program | DX: M16.11 Unilateral primary osteoarthritis, right hip (principal) | CPT/HCPCS: 77002 ==

== ENCOUNTER → 2024-12-04 10:23 | Outpatient (BNVA) | payer BC, SELFPAY | PROVIDERS: PCP Family Medicine; Visit Provider Student in an Organized Health Care Education/Training Program | DX: M16.11 Unilateral primary osteoarthritis, right hip (principal) | CPT/HCPCS: 77002 ==

== ENCOUNTER → 2025-01-12 14:03 | Outpatient (BNVA) | payer BC, SELFPAY | PROVIDERS: PCP Family Medicine; Visit Provider Physician Assistant | DX: M16.11 Unilateral primary osteoarthritis, right hip (principal); Z96.642 Presence of left artificial hip joint | CPT/HCPCS: 73502 ==

== ENCOUNTER → 2025-02-17 16:16 | Outpatient (BNVA) | payer BC, SELFPAY | PROVIDERS: PCP Family Medicine; Visit Provider Physician Assistant | DX: Z01.818 Encounter for other preprocedural examination (principal); I10 Essential (primary) hypertension | CPT/HCPCS: 36415; 80053; 80061; 81001; 85025 ==

== ENCOUNTER 2025-02-18 15:21 | Outpatient (CLI) | payer BC, SELFPAY ==
--- NOTE | 2025-02-18 15:30 | CT_ITS ---
WS: [id number] CT RIGHT hip for ARMANDO procedure HISTORY: M16.11 - Unilateral primary osteoarthritis, right hip Date: 02/18/2025 3:48 PM TECHNIQUE: Protocol for ARMANDO total hip replacement has been obtained. This includes axial imaging from the hip joint through the knee joint. DLP: [id number] FINDINGS: LEFT EB degrades some images in the pelvis. Advanced degenerative arthritis RIGHT hip with [id number] articulation. Sclerosis in the femoral head and acetabulum with advanced underlying subchondral cystic change. Hypertrophic changes about the acetabulum. Osteonecrosis involving the femoral head with flattening. Osteopenia. Facet arthropathy lower lumbar spine. Tiny fat-containing umbilical hernia. CT/CT hip RT [facility] [id number] IMPRESSION: CT imaging provided for [facility] robotic total hip replacement.
== END 2025-02-18 15:22 | disposition home or self-care (01) ==
LOC: RAD 15:21
PROVIDERS: PCP Family Medicine; Visit Provider Student in an Organized Health Care Education/Training Program
DX: M16.11 Unilateral primary osteoarthritis, right hip (principal); Z01.818 Encounter for other preprocedural examination
CPT/HCPCS: 73700

== ENCOUNTER 2025-03-12 13:40 | Outpatient (CLI) | payer BC, SELFPAY ==
--- NOTE | 2025-03-12 13:48 | USCV_ITS ---
Samantha Bender Age: 59 Gender: F : 1965 Exam Date: 03/12/2025 14:07 Ordering Phys: Karlee Junior MD Technologist: DREW Exam Location: [facility] [place] Indication: bruit Risk Factors: Previous Vascular Surgery: Right Brachial BP: / Left Brachial BP: / Right Left Velocity (cm/s) Spectral Plaque Velocity (cm/s) Spectral Plaque Syst/Diast Broadening Syst/Diast Broadening 55.60/ 12.80 Prox CCA 69.50 / 19.60 67.20/ 19.30 Mid CCA 76.20 / 18.10 50.40/ 11.50 Distal CCA 52.50 / 18.50 34.30/ 10.70 Prox ICA 34.40 / 11.80 59.10/ 23.60 Mid ICA 51.50 / 21.40 67.10/ 26.20 Distal ICA 29.80 / 13.30 40.60 ECA 63.00 0.70 ICA/CCA 0.70 Antegrade Vertebral Antegrade 24.20/ 5.90 cm/s 50.10/ 17.80 cm/s Tri Subclavian Tri 59.10 83.50 FINDINGS Comparison: none available. No significant elevation of systolic or diastolic velocities. Waveforms are normal. Minimal bilateral calcified plaque in the bifurcations. CONCLUSIONS Bilateral ICA stenosis less than 50%. Minimal carotid atherosclerosis. Dr. Samanta Brown DO (Electronically Signed) Final Date: 12 March 2025 16:02 S
== END 2025-03-12 13:41 | disposition home or self-care (01) ==
PROVIDERS: PCP Family Medicine; Visit Provider Family Medicine
DX: I65.23 Occlusion and stenosis of bilateral carotid arteries (principal); R09.89 Other specified symptoms and signs involving the circulatory and respiratory systems
CPT/HCPCS: 93880

== ENCOUNTER 2025-03-15 10:08 | Observation (INO) | payer BC, SELFPAY ==
--- NOTE | 2025-03-14 08:53 | P.ANESASSM_ITS ---
Pre-Anesthetic Assessment Height/Weight: Height 5 ft 4 in Preop Diagnosis: Hip arthritis Operation Date: 03/15/25 07:00 Proposed Procedures p Stew Robot Anterior Hip Arthroplasty(Right) - Frederic Momin, Was Beta Rosales taken within 24 hours: N/A Was Clonidine taken within 24 hours: N/A Social Tobacco and No alcohol Exam alert, oriented x 3, clear to auscultation bilaterally and regular rate & rhythm Airway Submandibular: within normal limits Cervical ROM: within normal limits Mallampati: Class II Dentition: false Comments: Comments: Upper false teeth, poor dentition on bottom. Denies any loose Anesthetic Plan ASA status: 3 Anesthesia: MAC and Regional (specify below) Other: No prior issues with anesthesia NPO since yesterday evening Similar procedure in the past under spinal anesthesia but per documentation this took 4 attempts History of hypertension on lisinopril Occasional smoker Recent labs reviewed from 02/17/2025 and acceptable for procedure today. NA 146, K+ 3.4 Plan for spinal anesthesia Medications/Allergies Home Medications ?Medication ?Instructions ?Recorded ?Confirmed ?Last Taken ?Type ibuprofen 200 mg capsule 200 mg PO Q6H PRN Pain (Scal e 07/10/24 03/15/25 1 Week Ago History Score 4-6) ~03/08/25 lisinopril 40 mg tablet 40 mg PO DAILY 30 days #30 t abs 02/25/25 03/15/25 03/14/25 Rx Allergies Allergy/AdvReac Type Severity Reaction Status Date / Time No Known Allergies Allergy Verified 03/12/25 09:59 [facility] Anesthesia Medical History Degenerative arthritis of hip Arthritis of left hip Low back pain Chronic left hip pain Surgical History S/P total left hip arthroplasty No history of previous surgery Family History Denies family history of Clotting disorder Anesthesia complication Bleeding disorder Social History Smoking and tobacco/nicotine status: current some day tobacco/nicotine user cigarettes Years cigarettes smoked: 30 [ Other cigarette details: occasionally] Quit status (tobacco/nicotine): has quit using Alcohol intake: never Substance/Drug Use: never
[2025-03-15] VITALS (14 sets, daily range): BP systolic 99–149; BP diastolic 56–103; PULSE 53–97; RESP 15–18; TEMP 36.4–36.8; O2SAT 97–100; BMI 21.4
[2025-03-15] MEDS: acetaminophen 1,000 MG/100 ML PIGGYBACK 400 MG IV ×3 (06:31→18:09)
[2025-03-15 06:41] LABS: Hematocrit 46.6 % (36-47); Hemoglobin 15.00 g/dL (11.27-16.99); Mean Corpuscular HGB Conc 32.2 g/dL (30-55); Mean Corpuscular Hemoglobin 31.2 pg (27-33); Mean Corpuscular Volume 96.9 fl (85-98); Nucleated Red Blood Cells % 0 %; Platelet Count 310 10^3/cmm (157-399); Red Blood Count 4.81 10^6/uL (3.85-5.65); White Blood Count 7.33 10^3/uL (3.29-11.43)
[2025-03-15 06:56] LABS: Blood Urea Nitrogen 17 mg/dL (8-23); Calcium 9.4 mg/dL (8.5-10.5); Carbon Dioxide 21 mmol/L (22-29); Chloride 106 mmol/L (98-107); Creatinine Clr Calc Pharmacy 73.9444; Glucose 90 mg/dL (65-115); Osmolality Calculated 289 mOsm/kg (285-295); Sodium 139 mmol/L (136-145)
--- NOTE | 2025-03-15 07:00 | W.PM.OPSUD ---
Surgery/Procedure H&P Update DATE OF PROCEDURE: March 15, 2025 DATE H&P PERFORMED: 02/17/25 H&P UPDATE INFORMATION: I have reviewed H&P completed within last 30 days, I have examined patient prior to procedure and No changes to prior documentation CHANGES TO PREVIOUS DOCUMENTATION: Patient is cleared the preoperative clearance process with Dr. Junior and had a carotid ultrasound and had only less than 50% bilateral carotid stenosis as a result was cleared by primary. Patient PREOP DIAGNOSIS: Hip arthritis PRIMARY INDICATION FOR PROCEDURE: Right hip degenerative joint disease PLANNED PROCEDURE: Operation Date: 03/15/25 07:00 Proposed Procedures p Stew Robot Anterior Hip Arthroplasty(Right) - Frederic Momin DO
[2025-03-15 07:07] LABS: Anion Gap 16.0 (5-19); Potassium 4.0 mmol/L (3.5-5.1)
[2025-03-15] MEDS: ceFAZolin 2,000 MG in sodium chloride 0.9% (plus) 50 ML 100 MG IV ×2 (07:12→15:20)
[2025-03-15] MEDS: lidocaine-epi 1% 20 mL INJ 10 ML INJECTION (07:51)
--- NOTE | 2025-03-15 09:47 | XR_ITS ---
WS: [id number] Exam: XR hip RT 2-3V wo/w pel* [id number] Date/Time of Exam: 03/15/2025 9:47 AM Reason For Exam: OR PICS AP C-arm images of the right hip are submitted. The final image depicts a total hip arthroplasty in place. Postop changes in the adjacent soft tissues.
--- NOTE | 2025-03-15 09:52 | PM.OP ---
Operative Report Date of procedure: March 15, 2025 Surgeon: Frederic Momin DO Clip Loading Machine Adjuster: Hari Momin PA-C: PA was necessary for assistance in this case with leg positioning , assistance with hip reductions, retraction and protection of neurovascular structures as well as assistance in implantation wound closure and dressing application. Procedure: Preoperative diagnosis: Right hip DJD Post-op diagnosis: Same Procedure done: Right total hip arthroplasty?Stew robotic assisted?anterior?approach Implants: Saint Lucas Trident acetabular shell size 50 mm Saint Lucas acetabular screw 25 mm Deo acetabular screw 15 mm Deo insignia hip stem high offset size 4 Trident 0 degree polyethylene 36 degree inner diameter 36 mm femoral head ceramic +2.5 mm Surgeon: Frederic Momin DO Anesthesia: Other (Spinal) Estimated blood loss: 250 mL IV fluids: 1700 mL Complications: None Findings: See operative report narrative Condition: stable Disposition: floor Brief History: Patient is a 59-year-old female presented to my outpatient office setting findings consistent with ydet-le-[id number] arthritis advanced degenerative joint disease of the right hip.? We talked about treatment options as far as nonoperative and operative intervention. Pt has failed conservative treatment.? Patient's right hip degenerative joint disease has been so severe she has been decreased activity levels given her pain and decreased range of motion.? we talked about treatment options at this point time pt understands the risk benefits complication alternatives surgical nonsurgical treatment options.? Patient understands the risk of surgery and agrees to proceed.? Patient has underwent a preoperative evaluation. Pt cleared for surical intervention. Pt understood and was agreeable to proceed with a right total hip arthroplasty with Stew robotic assisted (anterior approach) consent was reviewed and signed with patient.?? All questions answered.? Procedure: Patient was seen evaluated in the preoperative holding area.? Consent was reviewed and signed with patient.? Correct operative extremity was then marked. ? All questions were answered at this time.? Once cleared by anesthesia used to brought back to the operative suite he then underwent anesthesia per the anesthesia department of a spinal anesthetic. The patient was administered tranexamic acid and preop antibiotics, and placed in the supine position. All bony prominences were properly padded, securely fixed to the table, and administered?general?anesthetic. The patient was subsequently transferred from the hospital bed to the [place] table. Bilateral lower extremities were placed in the traction boots. The pelvis was well approximated against the perineal post.? Final timeout performed.? Patient received appropriate preoperative antibiotics. Both hips were then prepped and draped in a normal orthopedic fashion.? Started with a small incision 2 fingerbreadths above the ASIS on the left iliac wing to place? pelvic arrays.? Small incision was made directly down to bone.? 3 pelvic pins were placed with excellent fixation.? The robotic array was secured to the nonoperative iliac wing using sterile technique. The extremity was then definitively draped in standard, sterile fashion.? The array was found to be visible by the robot. ?A standard??anterior?supine approach was performed to the?operative hip joint. The skin was incised down to the tensor fascia erica muscle and fascia. Fascia was split longitudinally in line with its fibers. The tensor fascia erica muscle was retracted laterally. The appropriate retractors were placed superiorly. Lateral circumflex vessels were identified and appropriately ligated. The hip capsule was then identified.? Appropriate retractors were placed superiorly and inferiorly along the capsule directly onto bone.??That was split longitudinally up to the acetabular rim in line with the femoral neck. The femoral capsule was found to be significantly hypertrophic, thickened, and significantly fibrotic. The capsule was then elevated both superiorly and inferiorly down to the lesser trochanter as well as up towards the greater trochanter.? Tag stitches were applied with 0 Vicryl into the capsule.? Femoral check point was?then inserted and confirmed on the lateral trochanter proximal femur.?? A distal marker?of a sterile EKG lead was placed into the distal femur for measurement of leg lengths.? Preoperative leg lengths were registered and confirmed at this point. Next the appropriate-sized neck cut was then performed after being measured with robotic assistance. Femoral head was removed atraumatically this was found to have significant degenerative changes and deformity with significant osteophyte formation.? Femoral head was found to be severely degenerated and flattening with, eburnated bone. Acetabulum was also inspected and was found to have peripheral osteophytes as well as no evidence of cartilage consistent with ithe-ig-[id number] arthritis.? Appropriate retractors were then placed in the?anterior?and posterior wall.? The remaining labrum was then excised from the periphery of the acetabular rim. Pulvinar was excised.? At this point registration for the Stew was performed on the acetabular side and confirmed. Once confirmed, any osteophytes able to be were removed. We planned 40 degrees of lateral opening and 20 degrees of anteversion. At this point, we reamed and medialized to the inner wall of the acetabulum with a size?50?reamer for line to line fit.?The acetabulum was found to have good bleeding bone throughout.?? Reamer removed excellent bleeding bone circumferentially with sufficient?anterior?and posterior wall. ?The definitive acetabular cup 50 mm was inserted and impacted under?Stew guidance with the appropriate amount of anteversion and lateral opening. It was then secured with 2x 6.5 mm cancellous screws in appropriate safe zone position.? I subsquently drilled measured and place appropriate length acetabular screws which measured 15 mm and 25 mm.? These had excellent fixation final x-rays were taken of the acetabular work and showed a seated and well fixed acetabular cup with appropriate position acetabular screws.? ?Next a 36-mm X3 neutral liner was impacted into the?acetabular shell and secured. Hip was then irrigated with copious amounts of irrigation. At this point, the remaining femoral releases were then performed allowing the adequate mobilization of the?right?femur.? Traction was confirmed to being off to the right lower extremity and the femur was then externally rotated, extended, and adducted giving adequate exposure of the proximal femur in the surgical wound. Box cut was then used to enter the intramedullary canal of the?femur. Canal finder was placed down the canal of the?operative femur. Appropriate-sized broaches from a size 0 up to a size 4 were impacted down the operative femoral canal with the appropriate amount of anteversion.? A multiple trials with high offset were attempted and it was found?that?+2.5mm neck was found to be most appropriate for a soft tissue tensioning offset, stability and the leg lengths?that was confirmed with Stew. ?Stability was then assessed and excellent stability with patient external rotation of greater?than 90 degrees and traction with no evidence of hip instability.? Appropriate tension noted of the soft tissues. At this point, the hip was relocated.?Stew guidance was again used to confirm appropriate leg lengths.? This confirmed to being within a preoperative plan and within acceptable parameters matching the other side. This was the appropriate size for patient's stability and excellent soft tissue tensioning as well as this was mapped with her preoperative planning given she had been significantly shortened given her arthritis.? Operative hip was then re-dislocated using a bone hook. All trials were then removed from the?operative femur. Adequate exposure was then once again obtained. The trials were removed. The definitive Saint Lucas insignia hip stem high offset size 4 was impacted down the?femoral canal with the appropriate amount of anteversion. The appropriate sized head 36 mm ceramic +2.5 mm was impacted onto the trunnion, and the?operative?hip was then relocated with traction and internal rotation. Final measurements were obtained on Stew confirming leg lengths and offset.? Once again hip stability was assessed and found to have excellent stability and appropriate soft tissue tensioning.? Hip was irrigated with copious amounts of irrigation.? Vancomycin powder was placed within the wound bed for added infection prophylaxis.? The superior and inferior leaflets of the capsule were then closed with Ethibond suture.? Vicryl tag stitches were removed.? The superficial layer of the tensor fascia erica fascia was closed using 0 stratafix suture in a running fashion.? Subcutaneous tissues were closed with running 3-0 Stratafix, skin was closed with 4-0 monocryl.?Surgical Prineo glue and steri strips were?applied and covered with a irene incisional VAC dressing to the operative side.?The incision on the non-operative side for the robotic array was irrigated and closed with layered fashion of 0 Vicryl, 2-0 Vicryl and running Monocryl suture and surgical glue and covered with Silverlon. ?The patient was subsequently awoken per Anesthesia and transferred to PACU in satisfactory condition. ?Leg lengths and rotational profile were found to be appropriate. ? DISPOSITION: The patient will be admitted to the hospital for initiation of DVT prophylaxis, physical therapy, pain control. The patient is to weight bear as tolerated.?Anterior?hip precautions, postoperative antibiotics,?postoperative TXA and Eliquis?for DVT prophylaxis.? Patient will receive appropriate discharge instructions as well as pain medication postoperatively and will follow up in my office in 2 weeks.? Patient with work with PT/OT.? Internal medicine will be consulted for medical management
--- NOTE | 2025-03-15 10:00 | XR_ITS ---
WS: [id number] Exam: XR hip RT 2-3V wo/w pel* [id number] Date/Time of Exam: 03/15/2025 10:00 AM Reason For Exam: post op EB Comparison 03/15/2025 at 9:26 a.m. Right total hip replacement appears to be in satisfactory position. Postoperative changes in the adjacent soft tissues. Incidentally noted is intact LEFT total hip replacement. XR/XR hip RT 2-3V wo/w pel* [id number] IMPRESSION: 1. RIGHT total hip replacement in satisfactory position.
--- NOTE | 2025-03-15 10:05 | W.PM.BPON ---
Date of Procedure: [March 15, 2025] Surgeon: [Dr. Momin DO] Waste Disposal Plant Operator(s): [Hari Momin PA-C] Procedure(s) performed: [Right total hip arthroplasty with Stew robotic assist] Findings of the procedure(s): [Right hip degenerative joint disease. Procedure went well and as planned] Estimated blood loss: [250 mL] Specimen(s) removed: [right Femoral head] Post-operative diagnosis: [Right hip degenerative joint disease]
--- NOTE | 2025-03-15 10:09 | PM.PACU ---
PACU note Narrative: Patient is a 59-year-old female that just underwent a right total hip arthroplasty. Pt transferred to PACU in stable condition. Dressing is dry. pt is awake and alert. pt can plantarflex and dorsiflex foot. pt able to Distal pulses are palpable toes are warm and well-perfused. Cap refill is normal and under 2 seconds. Unable to perform any further motor sensation assessment to lower extremity due to residual block. Pain is controlled. Exam: awake Disposition: admitted
--- NOTE | 2025-03-15 10:14 | ANE.PACU2 ---
Inpatient post-anesthesia follow up: Airway intact: Yes Vital signs: Temperature 97.6 F Pulse Rate 53 Respiratory Rate 15 Blood Pressure 103/71 Pulse Oximetry 100 Oxygen Delivery Me thod Room Air Oxygen Flow Rate Fraction of Inspir ed Oxygen Hydration adequate: Yes Nausea and vomiting: No Pain level: 1 Mental status: Baseline
--- NOTE | 2025-03-15 11:00 | PC.OT ---
OT evaluation orders received; hold pt until tomorrow due to pt having surgery today. Will attempt OT evaluation at later time.
[2025-03-15] MEDS: chlorhexidine gluconate 0.12% Btl 473 mL 30 ML MUCOUS MEM ×3 (13:18→21:41)
[2025-03-15] MEDS: tranexamic acid 1,000 MG/100 ML PREMIX 600 MG IV (13:23)
--- NOTE | 2025-03-15 13:59 | PC.NURSE ---
PT in room @this time
--- NOTE | 2025-03-15 16:57 | P.CONIM_ITS ---
Providers/Reason For Consult 2 Consulting Physician/Specialty*: Frase/Hospitalist Reason for Consult*: Hypertension Requesting Physician: Dr Mmoin Attending Physician: Frederic Momin DO Primary Care Provider: Key Salgado MD History of Present Illness History of Present Illness Samantha Bender is a 59 year old female who presented to [facility] on the day of admission for an elective right hip replacement by Dr. Momin. She has previously had left total hip replacement. She had spinal anesthesia and estimated blood loss of 250 mL which is normal for the anterior approach that she had. Pain has been well-controlled postoperatively. No complaints of any nausea or vomiting, chest pain, trouble breathing. Last bowel movement was yesterday. She has recently been started on blood pressure medication. She held her lisinopril this morning as recommended. Currently prescribed 40 mg of lisinopril daily. This has been titrated up from 10 mg daily over the last few months. Blood pressures and heart rate coming out of surgery at the low normal range and bradycardic respectively. Asymptomatic. Hospitalist were consulted to assist with management given hypertension necessitating outpatient adjustment recently. Review perioperative course with Dr Momin. Review of Systems 2 General: Reports: Other (ROS as per HPI or as noted here) Christopher/Lymph: Denies: easy bleeding Medications/Allergies Home Medications ?Medication ?Instructions ?Recorded ?Confirmed ?Last Taken ?Type ibuprofen 200 mg capsule 200 mg PO Q6H PRN Pain (Scal e 07/10/24 03/15/25 1 Week Ago History Score 4-6) ~03/08/25 lisinopril 40 mg tablet 40 mg PO DAILY 30 days #30 t abs 02/25/25 03/15/25 03/14/25 Rx Allergies Allergy/AdvReac Type Severity Reaction Status Date / Time No Known Allergies Allergy Verified 03/15/25 11:16 Current Medications Generic Name Dose Route Start Last Admin Trade Name Freq PRN Reason Stop Dose Admin Chlorhexidine Gluconate 30 ml 03/15/25 13:00 03/15/25 13:18 Chlorhexidine Gluconate 0.12% Btl 473 Ml MUCOUS MEM 30 ml QID CAITLYN Administration Lactated Ringer's 1,000 mls @ 100 mls/hr 03/15/25 10:35 03/15/25 15:20 Lactated Ringers IV 100 mls/hr .Q10H CAITLYN Administration Acetaminophen 1,000 mg in 100 mls @ 400 mls/hr 03/15/25 10:35 03/15/25 11:04 Acetaminophen IV 03/16/25 02:49 Infused Q8H CAITLYN Infusion Cefazolin Sodium 2,000 mg/ 50 mls @ 100 mls/hr 03/15/25 15:00 03/15/25 15:20 Sodium Chloride IV 03/16/25 07:29 100 mls/hr Q8H CAITLYN Administration Protocol PFSH Acute 2 PFSH: Medical History Primary hypertension Degenerative arthritis of hip Bilateral Low back pain Surgical History S/P total left hip arthroplasty (01/02/23) ARMANDO Kirby robotic assist, anterior approach Family History Denies family history of Clotting disorder Anesthesia complication Bleeding disorder Social History (Updated 03/15/25 @ 18:32 by Corine Raines MD) Smoking and tobacco/nicotine status: current some day tobacco/nicotine user cigarettes Years cigarettes smoked: 30 [ Other cigarette details: occasionally smokes but rare now, has previously quit] Alcohol intake: never Substance/Drug Use: never Vitals/I&O/Wt Last Vital Signs Temp 97.6 F 03/15/25 10:22 Pulse 53 L 03/15/25 10:22 Resp 15 03/15/25 10:22 BP 103/71 03/15/25 10:22 Pulse Ox 100 03/15/25 10:22 O2 Del Method Room Air 03/15/25 11:26 03/15/25 03/15/25 03/15/25 06:59 14:59 22:59 Intake Total 100 / 100 250 / 250 Output Total 450 / 450 Balance 100 / 100 -200 / -200 Weight last 48 hrs Weight 56.699 kg Physical Exam 2 Narrative: Patient is awake and alert, able to provide history. Normocephalic. Extraocular movements are intact. Pupils are reactive. Oropharynx with moist mucosa. Regular rate and rhythm. No accessory muscle use. Abdomen is soft. Surgical dressings are in place. Able to move toes of both feet and sensation intact at both feet. Urinary Catheter Management: Dawkins: Cath Placed During This Visit: yes Urinary Catheter Date of Insertion: 03/15/25 Urinary Catheter Time of Insertion: 07:20 Data 03/15/25 06:19 03/15/25 06:19 Other Labs: Radiology Impressions Hip/Pelvis X-Ray 03/15/25 10:00 IMPRESSION: 1. RIGHT total hip replacement in satisfactory position. Laboratory Results WBC 7.33 10^3/uL (3.29-11.43) 03/15/25 06:19 RBC 4.81 10^6/uL (3.85-5.65) 03/15/25 06:19 Hgb 15.00 g/dL (11.27-16.99) 03/15/25 06:19 Hct 46.6 % (36-47) 03/15/25 06:19 MCV 96.9 fl (85-98) 03/15/25 06:19 MCH 31.2 pg (27-33) 03/15/25 06:19 MCHC 32.2 g/dL (30-55) 03/15/25 06:19 RDW 14.2 % (12.1-15.1) 03/15/25 06:19 Plt Count 310 10^3/cmm (157-399) 03/15/25 06:19 MPV 10.4 fL (7.4-10.4) 03/15/25 06:19 Neut % (Auto) 62.5 % 03/15/25 06:19 Lymph % (Auto) 27.8 % 03/15/25 06:19 [place] % (Auto) 6.3 % 03/15/25 06:19 Eos % (Auto) 2.3 % 03/15/25 06:19 Baso % (Auto) 0.7 % 03/15/25 06:19 Neut # (Auto) 4.58 10^3/uL (1.8-7.7) 03/15/25 06:19 Lymph # (Auto) 2.0 10^3/uL (0.8-4.8) 03/15/25 06:19 Stafford # (Auto) 0.5 10^3/uL (0.2-0.9) 03/15/25 06:19 Eos # (Auto) 0.2 10^3/uL (0.0-0.8) 03/15/25 06:19 Baso # (Auto) 0.1 10^3/uL (0.0-0.1) 03/15/25 06:19 Nucleated RBC % (auto) 0 % 03/15/25 06:19 Nucleated RBCs # 0.0 /100WBC 03/15/25 06:19 Sodium 139 mmol/L (136-145) 03/15/25 06:19 Potassium 4.0 mmol/L (3.5-5.1) 03/15/25 06:19 Chloride 106 mmol/L (98-107) 03/15/25 06:19 Carbon Dioxide 21 mmol/L (22-29) L 03/15/25 06:19 Anion Gap 16.0 (5-19) 03/15/25 06:19 BUN 17 mg/dL (8-23) 03/15/25 06:19 Creatinine 0.7 mg/dL (0.5-0.9) 03/15/25 06:19 GFR Calculation 85.1 mL/min (90-130) L 03/15/25 06:19 Glucose 90 mg/dL (65-115) 03/15/25 06:19 Calculated Osmolality 289 mOsm/kg (285-295) 03/15/25 06:19 Calcium 9.4 mg/dL (8.5-10.5) 03/15/25 06:19 Blood Type O Positive 03/15/25 06:19 Rho(D) Type Rh positive 03/15/25 06:19 Antibody Screen Negative 03/15/25 06:19 A&P Assessment and plan 1. S/P total right hip arthroplasty: POD 0 from surgery as per Dr Momin. Did well. - Spinal anesthesia - Pain control - On cefazolin post-op regimen, s/p vancomycin x one dose - S/P tranexamic acid - Has dawkins with orders to remove - Has SCDs and orders for eliquis to start in am - Stool softeners, laxatives as needed - PT to see - Plan is for home with home health tomorrow if remains stable 2. Primary hypertension: Recently started on lisinopril and has been titrated up from 10 to 40 mg daily. Did not take dose today. Postoperative pressures in the low normal range. - Will resume lisinopril at half usual dose tomorrow with parameters written - Discussed with patient plans for medication management after discharge may include half dosing for a few days while receiving pain management - Will need follow up to PCP for continued BP management, taking BP logs with her to appointments Plan: VTE prophylaxis: Eliquis to start in am; scds currently Antibiotics: perioperative ordered Pending studies: am labs Telemetry: not currently indicated Dawkins: orders to remove in place Line(s): peripheral IVs Disposition plan: Home with outpatient follow up and PT as per discharge plan arranged prior to elective surgery. She will be staying with her daughter as long as she needs to after surgery. Code Status: Full Code Supportive care otherwise Plans as noted were discussed with patient and she was given an opportunity to ask questions PDMP PDMP Reviewed: Last Reviewed 03/15/25 18:38 by Corine Raines MD Consult Attestations 2 Medical Necessity Statement: as per attending Diagnoses S/P total right hip arthroplasty Z96.641 Primary hypertension I10 Hypertension type: primary hypertension
[2025-03-15] MEDS: mupirocin oint 22 gm 1 APPLIC NASAL (18:11)
[2025-03-15] MEDS: calcium carb-vit d 600mg/400unit 1 Tablet 1 EACH PO (18:11)
[2025-03-15] MEDS: sennosides-docusate Tablet 2 TAB PO (18:15)
[2025-03-16] MEDS: ceFAZolin 2,000 MG in sodium chloride 0.9% (plus) 50 ML 100 MG IV ×2 (00:02→07:39)
[2025-03-16 00:05] VITALS: BP 126/83; PULSE 67; RESP 16; TEMP 36.9; O2SAT 98
--- NOTE | 2025-03-16 01:27 | PC.NURSE ---
ICE PACKS CHANGED AT 0030 03/16/25
[2025-03-16] MEDS: acetaminophen 1,000 MG/100 ML PIGGYBACK 400 MG IV (02:59)
[2025-03-16 05:20] VITALS: BP 138/83; PULSE 75; RESP 16; TEMP 36.8; O2SAT 98
[2025-03-16 05:26] LABS: Hematocrit 30.8 % (36-47); Hemoglobin 10.00 g/dL (11.27-16.99); Mean Corpuscular HGB Conc 32.5 g/dL (30-55); Mean Corpuscular Hemoglobin 31.3 pg (27-33); Mean Corpuscular Volume 96.3 fl (85-98); Nucleated Red Blood Cells % 0 %; Platelet Count 241 10^3/cmm (157-399); Red Blood Count 3.20 10^6/uL (3.85-5.65); White Blood Count 11.70 10^3/uL (3.29-11.43)
[2025-03-16 05:44] LABS: Blood Urea Nitrogen 15 mg/dL (8-23); Calcium 7.8 mg/dL (8.5-10.5); Carbon Dioxide 20 mmol/L (22-29); Chloride 113 mmol/L (98-107); Creatinine Clr Calc Pharmacy 73.9444; Glucose 97 mg/dL (65-115); Osmolality Calculated 291 mOsm/kg (285-295); Sodium 140 mmol/L (136-145)
[2025-03-16 05:48] LABS: Anion Gap 10.8 (5-19); Potassium 3.8 mmol/L (3.5-5.1)
--- NOTE | 2025-03-16 06:35 | PC.NURSE ---
ICE PACK CHANGED AT 0635
[2025-03-16] MEDS: APIXABAN 2.5 MG TABLET PO (08:49)
[2025-03-16] MEDS: multivitamin therapeutic Tablet 1 TAB PO (08:49)
[2025-03-16] MEDS: sennosides-docusate Tablet 2 TAB PO (08:50)
[2025-03-16] MEDS: calcium carb-vit d 600mg/400unit 1 Tablet 1 EACH PO (08:50)
[2025-03-16] MEDS: mupirocin oint 22 gm 1 APPLIC NASAL (08:51)
[2025-03-16] MEDS: chlorhexidine gluconate 0.12% Btl 473 mL 30 ML MUCOUS MEM (08:51)
[2025-03-16 08:54] VITALS: BP 156/91; PULSE 81; RESP 16; TEMP 36.7; O2SAT 100
--- NOTE | 2025-03-16 11:04 | P.DS_ITS ---
Discharge Providers Date of Admission: 03/15/25 10:08 Date of Discharge: March 16, 2025 Attending Provider at Admission: Frederic Momin DO Attending Provider at Discharge: Frederic Momin DO Consults: Dr. Raines?hospitalist Primary Care Provider: Key Salgado MD Diagnoses at Discharge Discharge Diagnosis 1. S/P total right hip arthroplasty: 2. Primary hypertension: Reason for Visit Reason for Visit: M16.11 Brief History: Status post right total hip arthroplasty?Tsew robotic assisted anterior approach Hospital Course Hospital Course Patient was brought to the hospital through the preoperative holding area with plan for right total hip arthroplasty for [right] hip dengerative joint disease. Once cleared by anesthesia for surgery subsequently was taken back to the operative suite underwent anesthesia per the anesthesia department and then underwent [right] total hip arthroplasty with Stew robotic assistance anterior approach without any complications. Patient was then subsequently taken back to PACU in stable condition recovering well. Once recovered, patient was then subsequently admitted to the floor postoperatively. Internal medicine was consulted for medical management assistance. Patient weightbearing as tolerated to the right lower extremity, anterior hip precautions. PT/OT. Pain control. DVT prophylaxis. Postoperative antibiotics and TXA. dressing was change as needed. Internal medicine was on board and appreciate their medical management and assistance. Pt was determined on postoperative day [1 ] the patient was stable for discharge from orthopedic as well as internal medicine standpoint. Patient's labs were monitored daily. Patient will receive appropriate pain medication as well as DVT prophylaxis postoperatively. Appropriate discharge instructions as well. Patient was then discharged in stable condition. Patient will discharge home. Pt will follow-up with Orthopedics in the office in 2 weeks. Patient understands and agrees with current plan. All questions answered. Understands there is any issues or concerns and contact the office. Physical Exam Narrative: Right hip examination: Dressing on in place, clean dry and intact. No evidence of saturation. Patient has normal postoperative swelling and tenderness to palpation to the hip. Incision on the contralateral hip side and dressings clean dry and intact, compartments are soft compressible,'s calf soft and nontender. Sensations intact to light touch distally. Distal pulses are palpable. Patient is able to wiggle toes as well as plantarflex and dorsiflex ankle. Urinary Catheter Management: Douglas: Cath Placed During This Visit: yes, but has since been removed by the nurse Reason for Continuing Indwelling Catheter: Decision to DC Catheter Urinary Catheter Date of Insertion: 03/15/25 Urinary Catheter Time of Insertion: 07:20 Date Urinary Catheter Removed: 03/16/25 Time Urinary Catheter Discontinued: 00:10 Discharge Data Studies Completed and Pending Completed Studies During Hospitalization Category Date Time Status XR hip RT 2-3V wo/w pel* 18109 Routine Exams 03/15/25 09:47 Completed XR hip RT 2-3V wo/w pel* [id number] Routine Exams 03/15/25 10:00 Completed Pending at discharge Category Date Time Status Basic Metabolic Panel AM LABS Lab 03/17/25 04:00 Ordered Basic Metabolic Panel AM LABS Lab 03/18/25 04:00 Ordered Complete Blood Count w/Auto AM LABS Lab 03/17/25 04:00 Ordered Complete Blood Count w/Auto AM LABS Lab 03/18/25 04:00 Ordered Radiology Impressions Hip/Pelvis X-Ray 03/15/25 10:00 IMPRESSION: 1. RIGHT total hip replacement in satisfactory position. Laboratory Results WBC 11.70 10^3/uL (3.29-11.43) H 03/16/25 05:18 RBC 3.20 10^6/uL (3.85-5.65) L 03/16/25 05:18 Hgb 10.00 g/dL (11.27-16.99) L D 03/16/25 05:18 Hct 30.8 % (36-47) L D 03/16/25 05:18 MCV 96.3 fl (85-98) 03/16/25 05:18 MCH 31.3 pg (27-33) 03/16/25 05:18 MCHC 32.5 g/dL (30-55) 03/16/25 05:18 RDW 14.1 % (12.1-15.1) 03/16/25 05:18 Plt Count 241 10^3/cmm (157-399) 03/16/25 05:18 MPV 10.3 fL (7.4-10.4) 03/16/25 05:18 Neut % (Auto) 70.1 % 03/16/25 05:18 Lymph % (Auto) 20.9 % 03/16/25 05:18 [place] % (Auto) 7.9 % 03/16/25 05:18 Eos % (Auto) 0.4 % 03/16/25 05:18 Baso % (Auto) 0.3 % 03/16/25 05:18 Neut # (Auto) 8.20 10^3/uL (1.8-7.7) H 03/16/25 05:18 Lymph # (Auto) 2.4 10^3/uL (0.8-4.8) 03/16/25 05:18 [place] # (Auto) 0.9 10^3/uL (0.2-0.9) 03/16/25 05:18 Eos # (Auto) 0.1 10^3/uL (0.0-0.8) 03/16/25 05:18 Baso # (Auto) 0.0 10^3/uL (0.0-0.1) 03/16/25 05:18 Nucleated RBC % (auto) 0 % 03/16/25 05:18 Nucleated RBCs # 0.0 /100WBC 03/16/25 05:18 Sodium 140 mmol/L (136-145) 03/16/25 05:18 Potassium 3.8 mmol/L (3.5-5.1) 03/16/25 05:18 Chloride 113 mmol/L (98-107) H 03/16/25 05:18 Carbon Dioxide 20 mmol/L (22-29) L 03/16/25 05:18 Anion Gap 10.8 (5-19) 03/16/25 05:18 BUN 15 mg/dL (8-23) 03/16/25 05:18 Creatinine 0.7 mg/dL (0.5-0.9) 03/16/25 05:18 GFR Calculation 85.1 mL/min (90-130) L 03/16/25 05:18 Glucose 97 mg/dL (65-115) 03/16/25 05:18 Calculated Osmolality 291 mOsm/kg (285-295) 03/16/25 05:18 Calcium 7.8 mg/dL (8.5-10.5) L 03/16/25 05:18 Blood Type O Positive 03/15/25 06:19 Rho(D) Type Rh positive 03/15/25 06:19 Antibody Screen Negative 03/15/25 06:19 Vitals Last Vital Signs Temp 98.1 F 03/16/25 08:54 Pulse 81 03/16/25 08:54 Resp 16 03/16/25 08:54 BP 156/91 03/16/25 08:54 Pulse Ox 100 03/16/25 08:54 O2 Del Method Room Air 03/16/25 08:54 Discharge Plan Discharge Patient Disposition: Home Health Service Condition: Stable Prescriptions: New oxycodone 5 mg tablet 5 mg PO Q6H PRN (Reason: pain postop) 7 Days Qty: 28 0RF Continued lisinopril 40 mg tablet 40 mg PO DAILY 30 Days Qty: 30 2RF Rx Instructions: Take 1/2 tablet (20mg) daily for 3 days after surgery and then resume whole tablet (40mg) daily if blood pressures are > 130/80. Held ibuprofen 200 mg capsule 200 mg PO Q6H PRN (Reason: Pain (Scale Score 4-6)) Hold Instructions: Resume on 04/26/25. 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 Discharge Order = DC NOW: Discharge Order (Routine); Ordered 03/16/25 Ordered By: Frederic Momin Referrals: Hari Momin PA [Physician Paire[facility], Orthopedics] - 03/30/25 9:30 am Discharge Diet: Regular Discharge Activity: Increase activity as tolerated and Use walker/crutches as instructed Patient Instructions: Cefadroxil (By mouth), Oxycodone, Rapid Release (By mouth) (ETH-Oxydose, Oxy IR,..., Ondansetron (By mouth), Apixaban (By mouth) (Eliquis), Acute Wound Care (DC), Precautions after Total Joint Replacement Surgery (DC), Total Hip Replacement (DC), Opioid Safety, Post Anesthesia Care, Patient Portal & Tre Instructions Activity Restrictions/Additional Instructions: Orthopedic discharge instructions: Right hip Zahraa Dressing--Keep dressing on and dry. . disconnect battery pack when showering. Zahraa dressing will stay on until follow up appt in 2 weeks. The battery pack for the dressing will at 5-7 days. Battery pack can be removed and discarded once batteries . Patient should keep dressings clean dry and intact Okay to shower over dressings if they do become wet these should be removed and new dressings applied Keep incisions clean dry and intact, leave Silverlon bandage dressings on in place for 7 days after that may rinse incisions with warm soapy water pat dry and redress with a dry dressing Weight-bear as tolerated to operative lower extremity Anterior hip precautions as instructed by physical therapy Ice as needed for pain and swelling Take pain medication as prescribed Take antinausea medication as needed Supplement with Citracal vitamin D for bone health and healing Pain medication can cause constipation. take [id number] stool softeners and or MiraLAX. Take blood thinner as prescribed (Eliquis) Follow-up in the orthopedic office in 2 weeks Contact the office for any questions or concerns Hospitalist discharge instructions: Your blood pressure after surgery was running 100s/70s. Given this, I am recommending you only take half of your 40mg lisinopril tablet daily for the next 3 days (20mg daily for 3 days). You can resume your usual 40mg daily dose if your blood pressures are remaining greater than or equal to 130/80. Patient's Health Concerns: Healing from surgery Blood pressure Assessment: S/P Right total hip replacement Primary hypertension with low normal blood pressures after surgery Plan of Treatment: Pain control and therapy, out patient follow up Adjust blood pressure medication as needed Goals: Return to independent ambulation Discharge Attestations Time Spent in Discharge Care*: less than 30 min Quality Metrics Clinical Quality Measures [ No reported AMI, CVA or VTE this stay] Coding Level of Care Code Acute Code for Chg Fwd Diagnoses S/P total right hip arthroplasty Z96.641 Primary hypertension I10 Hypertension type: primary hypertension
[2025-03-16 13:53] VITALS: BP 133/85; PULSE 97; RESP 16; TEMP 36.7; O2SAT 99
== END 2025-03-16 13:52 | disposition home health service (06) ==
LOC: OBGYN 10:08
PROVIDERS: Physician Assistant; Admitting Provider Student in an Organized Health Care Education/Training Program; PCP Family Medicine; Visit Provider Student in an Organized Health Care Education/Training Program
PROC: 8E0Y0CZ Robotic Assisted Procedure of Lower Extremity, Open Approach (ICD-10-PCS; CPT 27130; principal; 2025-03-15 07:00)
DX: M16.11 Unilateral primary osteoarthritis, right hip (principal); I10 Essential (primary) hypertension; F17.210 Nicotine dependence, cigarettes, uncomplicated; Z79.01 Long term (current) use of anticoagulants
CPT/HCPCS: 27130; 20985; 36415; 51702; 73502; 76000; 80048; 85025; 86850; 86900; 97110; 97116; 97161; 97165; C1713; C1776; G0378; J0131; J0690; J1100; J1885; J2250; J2405; J2704; J3010; J3373; J7030; J7120; J9999

== ENCOUNTER → 2025-03-30 09:17 | Outpatient (BNVA) | payer BC, SELFPAY | PROVIDERS: PCP Family Medicine; Visit Provider Physician Assistant | DX: Z98.890 Other specified postprocedural states (principal); Z96.641 Presence of right artificial hip joint | CPT/HCPCS: 73502 ==

== ENCOUNTER → 2025-05-04 08:52 | Outpatient (BNVA) | payer BC, SELFPAY | PROVIDERS: PCP Family Medicine; Visit Provider Physician Assistant | DX: Z98.890 Other specified postprocedural states (principal); Z96.641 Presence of right artificial hip joint | CPT/HCPCS: 73502 ==

== ENCOUNTER → 2025-06-09 09:08 | Outpatient (BNVA) | payer BC, SELFPAY | PROVIDERS: PCP Family Medicine; Visit Provider Physician Assistant | DX: Z98.890 Other specified postprocedural states (principal); Z96.641 Presence of right artificial hip joint | CPT/HCPCS: 73502 ==